=== PATIENT | female | born 1955 | race African-American/Black ===

== ENCOUNTER 2017-12-08 12:52 | Emergency (ER) | payer BC, OTHER ==
[2017-12-08 13:36] LABS: #Eosinphils 0.1 thou/uL (0.0-0.7); #Lymphocytes 1.6 thou/uL (1.20-3.40); #Monocytes 0.4 thou/uL (0.11-0.59); #Neutrophils 2.9 thou/uL (1.40-6.50); %Basophils 0.4 % (0.0-1.0); %Lymphocytes 32.2 % (21.0-51.0); %Monocytes 7.4 % (0.0-10.0); Hemoglobin 12.3 g/dL (12.0-16.0); Mean Corpuscular HGB CONC 32.1 g/dL (32.0-36.0); Mean Corpuscular Hemoglobin 28.6 pg (27.0-31.0); Mean Corpuscular Volume 89.1 fl (81.0-99.0); Mean Platelet Volume 7.9 fL (7.4-10.4); Platelet Count 338 thou/uL (130-400); RBC Distribution Width 13.4 % (11.5-14.5); Red Blood Cell (RBC) Count 4.28 mill/uL (4.20-5.40); White Blood Cell (WBC) Count 4.9 thou/uL (4.8-10.8)
[2017-12-08 14:00] LABS: CKMB 1.2 ng/mL (0-6.6); Troponin I Less than 0.010 ng/mL (< 0.028)
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
[2017-12-08 14:02] LABS: ALT (SGPT) 16 U/L (8-55); AST (SGOT) 14 U/L (5-34); Albumin 4.5 g/dL (3.4-4.8); Alkaline Phosphatase 79 U/L (40-150); Anion Gap 13 mmol/L (10-20); BUN (Urea Nitrogen) 9 mg/dL (9.8-20.1); Bilirubin, Total 0.3 mg/dL (0.2-1.2); CK (CPK) 282 U/L (29-168); Calc. Creatinine Clearance 0 mL/min (70-130); Calcium 9.6 mg/dL (7.8-10.44); Carbon Dioxide 27 mmol/L (23-31); Chloride 103 mmol/L (98-107); Estimated GFR-MDRD 86; Globulin 3.5 g/dL (2.4-3.5); Glucose 112 mg/dL (80-115); Lipase 21 U/L (8-78); Potassium 3.6 mmol/L (3.5-5.1); Sodium 139 mmol/L (136-145)
[2017-12-08] MEDS ORDERED: Mag-Al 1200 mg/1200 mg/30 ML UDCUP ONE (15:17)
[2017-12-08] MEDS ORDERED: Lidocaine Viscous Sol 2% 15 ml UD Cup ONE (15:17)
== END 2017-12-08 15:29 | disposition home or self-care (01) ==
LOC: ERS 12:52
DX: K29.70 Gastritis, unspecified, without bleeding (principal); E11.9 Type 2 diabetes mellitus without complications; E78.5 Hyperlipidemia, unspecified; I10 Essential (primary) hypertension; Z79.84 Long term (current) use of oral hypoglycemic drugs; Z79.899 Other long term (current) drug therapy
CPT/HCPCS: 71045; 80053; 82553; 83690; 84484; 85025; 93005; 94760

== ENCOUNTER 2020-07-24 17:33 | Emergency (ER) | payer OTHER ==
[~2020-07-24 17:33] MED LIST: Iopamidol 370 76% 100 ML VIAL ONE
[2020-07-24] MEDS ORDERED: HYDROcodone/Acetaminophen 5/325 mg Tablet ONE (18:34)
[2020-07-24] MEDS ORDERED: Ondansetron ODT 4 MG TAB ONE (18:35)
[2020-07-24] MEDS ORDERED: Cyclobenzaprine 10 MG TAB ONE (18:35)
[2020-07-24 19:42] LABS: #Eosinphils 0.1 thou/uL (0.0-0.7); #Lymphocytes 2.1 thou/uL (1.20-3.40); #Monocytes 0.5 thou/uL (0.11-0.59); #Neutrophils 3.8 thou/uL (1.40-6.50); %Eosinophils 1.1 % (0.0-10.0); %Lymphocytes 32.4 % (21.0-51.0); %Monocytes 7.4 % (0.0-10.0); %Neutrophils 59.1 % (42.0-75.0); Mean Corpuscular HGB CONC 32.9 g/dL (32.0-36.0); Mean Corpuscular Hemoglobin 28.4 pg (27.0-31.0); Mean Corpuscular Volume 86.3 fL (78.0-98.0); Platelet Count 312 thou/uL (130-400); RBC Distribution Width 13.1 % (11.5-14.5); Red Blood Cell (RBC) Count 3.87 mill/uL (4.20-5.40); White Blood Cell (WBC) Count 6.4 thou/uL (4.8-10.8)
[2020-07-24 20:10] LABS: ALT (SGPT) 13 U/L (8-55); AST (SGOT) 15 U/L (5-34); Albumin 4.3 g/dL (3.4-4.8); Alkaline Phosphatase 75 U/L (40-110); Anion Gap 17 mmol/L (10-20); BUN (Urea Nitrogen) 17 mg/dL (9.8-20.1); Bilirubin, Total 0.2 mg/dL (0.2-1.2); Calc. Creatinine Clearance 0 mL/min (70-130); Calcium 9.4 mg/dL (7.8-10.44); Carbon Dioxide 25 mmol/L (23-31); Chloride 104 mmol/L (98-107); Estimated GFR-MDRD 73; Globulin 3.6 g/dL (2.4-3.5); Glucose 122 mg/dL (80-115); Potassium 3.9 mmol/L (3.5-5.1); Protein, Total 7.9 g/dL (6.0-8.3); Sodium 142 mmol/L (136-145)
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
== END 2020-07-24 21:30 | disposition home or self-care (01) ==
LOC: ERS 17:33
DX: S13.4XXA Sprain of ligaments of cervical spine, initial encounter (principal); S16.1XXA Strain of muscle, fascia and tendon at neck level, initial encounter; R10.84 Generalized abdominal pain; E11.9 Type 2 diabetes mellitus without complications; E78.5 Hyperlipidemia, unspecified; I10 Essential (primary) hypertension; Z79.84 Long term (current) use of oral hypoglycemic drugs; Z79.899 Other long term (current) drug therapy; V43.52XA Car driver injured in collision with other type car in traffic accident, initial encounter
CPT/HCPCS: 36415; 70450; 71260; 72125; 74177; 80053; 85025; Q0162; Q9967